=== PATIENT | male | born 1980 | race Caucasian/White ===

== ENCOUNTER 2019-05-19 14:16 | Emergency (ER) | payer BC ==
[2019-05-19 15:04] LABS: BASOPHILS % (AUTO) 0.8 %; EOSINOPHILS # (AUTO) 0.2 10^3/uL (0.0-0.7); HGB - HEMOGLOBIN 15.4 g/dL (14.0-18.0); LYMPHOCYTES # (AUTO) 1.6 10^3/uL (1.5-3.5); LYMPHOCYTES % (AUTO) 30.3 %; MEAN CORPUSCULAR HEMOGLOBIN 31.3 pg (27.0-31.0); MEAN CORPUSCULAR VOLUME 89.4 fL (80.0-94.0); MEAN PLATELET VOLUME 10.6 fL (7.4-11.4); MONOCYTES # (AUTO) 0.5 10^3/uL (0.0-1.0); MONOCYTES % (AUTO) 9.5 %; NEUTROPHILS # (AUTO) 2.9 10^3/uL (1.5-6.6); NEUTROPHILS % (AUTO) 55.2 %; PLT - PLATELET COUNT 200 10^3/uL (130-450); RED BLOOD COUNT 4.92 10^6/uL (4.70-6.10); RED CELL DISTRIBUTION WIDTH 12.4 % (12.0-15.0); WHITE BLOOD COUNT 5.3 x10^3/uL (4.8-10.8)
[2019-05-19 15:17] LABS: ALBUMIN 4.5 g/dL (3.2-5.5); ALBUMIN/GLOBULIN RATIO 1.5 (1.0-2.2); CALCIUM 9.4 mg/dL (8.5-10.3); TOTAL PROTEIN 7.6 g/dL (6.7-8.2)
[2019-05-19] MEDS ORDERED: NAPROXEN 250 MG TABLET PO STA (15:55)
[2019-05-19] MEDS ORDERED: ONDANSETRON ODT 4 MG TABLET TL STA (15:55)
--- NOTE | 2019-05-19 16:06 | ED Physician Documentation ---
PD HPI NVD - Stated complaint Stated Complaint: DIZZY/CISNEROS/NAUSEA - Chief complaint Chief Complaint: General - History obtained from History obtained from: Patient - History of Present Illness Timing - onset: How many weeks ago (several days to a week, has had intermittent headache, nausea, lightheaded. with similar symptoms the past couple of week but not as much. No fever nor URI symptoms for either of them. Today, they had a CO detector alarm downstairs and the fire dept came and found high CO levels, mostly focused in laundry room around the dryer. Patient is having appliance repair come out and the dryer is unplugged. They say the townhouse heat is electric. dryer and water heater are gas. No other CO sources in house.) Timing - duration: Days, Weeks Timing - details: Gradual onset, Waxing and waning, Still present in ED Associated symptoms: No: Fever, Abdominal pain, Near syncope / syncope Contributing factors: No: Sick contact, Bad food, Travel Improved by: Other (he says has felt some better once he is at work and "perks up".) Similar symptoms before: Has not had sx before Recently seen: Not recently seen Review of Systems Constitutional: reports: Fatigue. denies: Fever, Chills, Myalgias Nose: denies: Rhinorrhea / runny nose, Congestion, Sinus pressure / pain Throat: denies: Sore throat Respiratory: denies: Cough GI: reports: Nausea. denies: Vomiting, Diarrhea Neurologic: reports: Generalized weakness, Headache PD PAST MEDICAL HISTORY - Past Medical History Cardiovascular: None Respiratory: None Neuro: None Endocrine/Autoimmune: None - Present Medications Home Medications: Ambulatory Orders Medication Instructions Recorded Confirmed Naproxen 500 mg PO BID #20 tablet 05/19/19 Ondansetron Odt [Zofran] 4 mg TL Q6H PRN #15 tablet 05/19/19 - Allergies Allergies/Adverse Reactions: Allergies Allergy/AdvReac Type Severity Reaction Status Date / Time Sulfa (Sulfonamide Allergy Hives Verified 05/19/19 14:25 Antibiotics) - Living Situation Living Situation: reports: With spouse/s.o. Living Arrangement: reports: At home - Social History Does the pt smoke?: No Does the pt have substance abuse?: No PD ED PE NORMAL - Vitals Vital signs reviewed: Yes - General General: Alert and oriented X 3, No acute distress, Well developed/nourished - HEENT HEENT: Ears normal, Moist mucous membranes, Pharynx benign - Neck Neck: Supple, no meningeal sign, No adenopathy - Cardiac Cardiac: RRR, No murmur - Respiratory Respiratory: Clear bilaterally - Derm Derm: Normal color, Warm and dry - Neuro Neuro: Alert and oriented X 3, No motor deficit, Normal speech Results - Vitals Vitals: Vital Signs - 24 hr 05/19/19 05/19/19 14:25 16:26 Temperature 36.7 C 36.9 C Heart Rate 70 79 Respiratory 16 16 Rate Blood Pressure 129/82 H 122/67 O2 Saturation 98 97 Oxygen O2 Source Room air Oxygen Flow Rate 15 - Labs Labs: Laboratory Tests 05/19/19 05/19/19 05/19/19 14:55 14:55 14:55 WBC 5.3 RBC 4.92 Hgb 15.4 Hct 44.0 MCV 89.4 MCH 31.3 H MCHC 35.0 RDW 12.4 Plt Count 200 MPV 10.6 Neut # (Auto) 2.9 Lymph # (Auto) 1.6 [place] # (Auto) 0.5 Eos # (Auto) 0.2 Baso # (Auto) 0.0 Absolute Nucleated RBC 0.00 Nucleated RBC % 0.0 VBG Total Hgb 16.2 VBG Oxyhemoglobin 88 L VBG Carboxyhemoglobin 0.6 VBG Methemoglobin 0.1 Sodium 139 Potassium 3.6 Chloride 103 Carbon Dioxide 25 Anion Gap 11.0 BUN 26 H Creatinine 1.0 Estimated GFR (MDRD) 84 L Glucose 100 Calcium 9.4 Total Bilirubin 1.0 AST 21 ALT 23 Alkaline Phosphatase 53 Total Protein 7.6 Albumin 4.5 Globulin 3.1 Albumin/Globulin Ratio 1.5 Lipase 39 PD MEDICAL DECISION MAKING - ED course Complexity details: reviewed results, considered differential (Symptoms sound like CO poisoning. His level is low/normal here now in ER, but likely was higher earlier and symptoms could be still to resolve. Also consider that chronic CO poisoning would have sympotms at lower levels and take longer to resolve. ), d/w patient Departure - Departure Disposition: 01 Home, Self Care Clinical Impression: Nausea Headache Qualifiers: Headache type: unspecified Headache chronicity pattern: acute headache Intractability: not intractable Qualified Code(s): R51 - Headache Carbon monoxide poisoning Qualifiers: Encounter type: initial encounter Injury intent: accidental or unintentional Qualified Code(s): T58.91XA - Toxic effect of carbon monoxide from unspecified source, accidental (unintentional), initial encounter Condition: Stable Record reviewed to determine appropriate education?: Yes Instructions: ED CO Poisoning Follow-Up: Hortencia Hameed PA [Primary Care Provider] - Prescriptions: Naproxen 500 mg PO BID #20 tablet Ondansetron Odt [Zofran] 4 mg TL Q6H PRN #15 tablet PRN Reason: Nausea / Vomiting Comments: Your carbon monoxide level was still in the normal range at 3 though you can get carbon monoxide poisoning symptoms add a much lower dose if it is chronic (for example over weeks or so). The treatment for this would be prevent further exposure to the carbon monoxide of course. The symptoms of the headaches and nausea may take several days or week to trend down with a more chronic exposure but should gradually improve. O dancer and if needed for nausea. Use naproxen anti-inflammatory twice daily for a week to 10 days to help with some of the symptoms as well. Recheck if not improving well over the next couple of days and resolved within a week. Discharge Date/Time: 05/19/19 16:27
[2019-05-19 16:27] VITALS: BP 122/67
== END 2019-05-19 16:27 | disposition home or self-care (01) ==
LOC: ED 14:16
DX: T58.91XA Toxic effect of carbon monoxide from unspecified source, accidental (unintentional), initial encounter (principal); R51 Headache; R11.0 Nausea; R42 Dizziness and giddiness; R53.83 Other fatigue; R53.1 Weakness
CPT/HCPCS: 36415; 80053; 82375; 83690; 85025; 99283; 99284; A9270; Q0162

== ENCOUNTER 2020-02-23 08:16 | Outpatient (CLI) | payer BC ==
[2020-02-23 15:31] LABS: BILIRUBIN,URINE NEGATIVE (NEGATIVE); GLUCOSE, URINE (UA) NEGATIVE (NEGATIVE); KETONES,URINE (UA) NEGATIVE (NEGATIVE); LEUKOCYTE ESTERASE, URINE NEGATIVE (NEGATIVE); NITRITE,URINE NEGATIVE (NEGATIVE); OCCULT BLOOD,URINE NEGATIVE (NEGATIVE); PROTEIN,URINE NEGATIVE (NEGATIVE); UROBILINOGEN,URINE 0.2 (NORMAL) E.U./dL (NORMAL)
[2020-02-23 15:42] LABS: BASOPHILS % (AUTO) 1.1 %; EOSINOPHILS # (AUTO) 0.2 10^3/uL (0.0-0.7); EOSINOPHILS % (AUTO) 5.3 %; HGB - HEMOGLOBIN 15.8 g/dL (14.0-18.0); LYMPHOCYTES # (AUTO) 1.3 10^3/uL (1.5-3.5); MEAN CORPUSCULAR HEMOGLOBIN 31.6 pg (27.0-31.0); MEAN CORPUSCULAR HGB CONC 34.3 g/dL (32.0-36.0); MONOCYTES # (AUTO) 0.4 10^3/uL (0.0-1.0); MONOCYTES % (AUTO) 11.1 %; NEUTROPHILS # (AUTO) 1.7 10^3/uL (1.5-6.6); NEUTROPHILS % (AUTO) 46.5 %; PLT - PLATELET COUNT 191 10^3/uL (130-450); WHITE BLOOD COUNT 3.6 x10^3/uL (4.8-10.8)
[2020-02-23 16:01] LABS: BACTERIA,URINE None Seen /HPF (None Seen); CASTS, URINE 0-2 Hyaline Casts /LPF; CLARITY,URINE CLEAR (CLEAR); RBC,URINE None Seen /HPF (0-5); SQUAMOUS EPITHELIAL CELL,UR NONE SEEN (<= Few)
[2020-02-23 16:11] LABS: ALBUMIN 4.4 g/dL (3.2-5.5); ALBUMIN/GLOBULIN RATIO 1.5 (1.0-2.2); ALKALINE PHOSPHATASE 59 IU/L (42-121); ALT ALANINE AMINOTRANSFERASE 17 IU/L (10-60); AST ASPARTATE AMINOTRANSFERASE 18 IU/L (10-42); BILIRUBIN,TOTAL 0.9 mg/dL (0.2-1.0); BUN - BLOOD UREA NITROGEN 16 mg/dL (6-20); CALCIUM 9.1 mg/dL (8.5-10.3); CARBON DIOXIDE - CO2 27 mmol/L (21-32); CHLORIDE 106 mmol/L (101-111); CHOL/HDL RATIO 3.3 (<5.0); CHOLESTEROL 190 mg/dL; CREATININE 0.8 mg/dL (0.6-1.2); GLUCOSE 94 mg/dL (70-100); HDL CHOLESTEROL 57 mg/dL; SODIUM 139 mmol/L (135-145); TOTAL PROTEIN 7.4 g/dL (6.7-8.2)
== END 2020-02-23 08:17 | disposition home or self-care (01) ==
LOC: LAB.S 08:16
PROVIDERS: ATTEND Naturopath
DX: M25.512 Pain in left shoulder (principal); R06.02 Shortness of breath; R00.2 Palpitations; G43.909 Migraine, unspecified, not intractable, without status migrainosus
CPT/HCPCS: 36415; 80053; 80061; 81001; 83721; 85025